=== PATIENT | female | born 1990 ===

== ENCOUNTER 2025-10-16 17:09 | Outpatient (CLI) | payer BC, MEDICAID, SELFPAY ==
--- NOTE | 2025-10-16 17:30 | CRLHL7_ITS ---
For Patients: As a result of the Cures Act, medical imaging exams and procedure reports are released immediately into your electronic medical record. You may view this report before your referring provider. If you have questions, please contact your health care provider. OB ULTRASOUND INDICATION: Dating and viability. TECHNIQUE: Real time grayscale imaging of the fetus was performed. Transabdominal. Patient denied transvaginal imaging. LMP: 08/15/2025. RIAZ by LMP: 05/02/2026. GA: 8 w, 6 d. Previous US: No. CRL: 2.5 cm. 9 w 1 d. RIAZ: 05/20/2026. FHR: 183 BPM. Gestational sac: 4.0 cm. Appears within normal limits. Yolk sac: 3.0 mm. Appears within normal limits. Right ovary: 3.0 x 1.3 x 1.4 cm. Left ovary: 4.5 x 2.3 x 2.9 cm. CL. IMPRESSION: 1. Single living intrauterine measures 9 weeks 1 day with sonographic due date 05/20/2026. 2. Corpus luteal cyst left ovary measures 3.1 x 2.4 x 2.3 cm. Eladio Gagnon M.D. Diagnostic Radiologist [email or web address] MATILDE/eden harmon/Dictated by: Eladio Gagnon MD @ 10/17/2025 6:24:00 AM (Electronically Signed)
== END 2025-10-16 17:10 | disposition home or self-care (01) ==
LOC: US 17:10
PROVIDERS: Visit Provider Midwife
DX: O34.81 Maternal care for other abnormalities of pelvic organs, first trimester (principal); N83.12 Corpus luteum cyst of left ovary; Z3A.09 9 weeks gestation of pregnancy
CPT/HCPCS: 76801